=== PATIENT | female | born 1990 ===

== ENCOUNTER 2020-03-29 21:39 | Inpatient (IN) ==
[2020-03-29 23:00] LABS: ABS Basophils 0.1 10^3/ul (0-0.2); ABS Eosinophils 0.3 10^3/ul (0-0.6); ABS Lymphocytes 3.6 10^3/ul (1.0-4.8); ABS Monocytes 0.9 10^3/ul (0-0.8); ABS Neutrophils 7.1 10^3/ul (1.5-7.7); Eosinophil % 2.5 %; Hematocrit 34 % (35-47); Hemoglobin 11.1 g/dL (12.0-16.0); Lymphocyte % 29.9 %; Mean Corpuscular HGB Conc 33 g/dL (31-36); Mean Corpuscular Hemoglobin 25 pg (27-31); Mean Corpuscular Volume 77 fL (80-97); Mean Platelet Volume 7.6 fL (7.4-10.4); Platelet Count 360 10^3/uL (150-450); Red Cell Distribution Width 15 % (10-15); White Blood Count 11.9 10^3/uL (3.5-10.8)
[2020-03-29 23:22] LABS: Acetaminophen < 15 mcg/mL; Alcohol, S < 10 mg/dL (<10); Salicylate < 2.50 mg/dL (<30)
[2020-03-29 23:30] LABS: HCG Pregnancy < 0.60 mIU/mL
[2020-03-29 23:30] LABS: Urine Benzodiazepine Screen None Detected (None Detect); Urine Cannabinoids Screen None Detected (None Detect); Urine Opiates Screen None Detected (None Detect)
[2020-03-29 23:38] LABS: TSH Ultra Thyroid Stim Horm 2.58 mcIU/mL (0.34-5.60)
[2020-03-29 23:40] LABS: Free T4 0.78 ng/dL (0.61-1.12)
[2020-03-30] LABS: Anion Gap 10 mmol/L (2-11); CO2 Carbon Dioxide 23 mmol/L (22-32); Calcium 9.2 mg/dL (8.6-10.3); Chloride 107 mmol/L (101-111); Potassium 3.5 mmol/L (3.5-5.0); Sodium 140 mmol/L (135-145)
[2020-03-30 00:06] LABS: BUN/Creatinine Ratio 10.8 (8-20); Blood Urea Nitrogen 9 mg/dL (6-24); EGFR African American 97.7 (>60); EGFR Non-African American 80.7 (>60); Glucose 110 mg/dL (70-100)
[2020-03-30] MEDS ORDERED: Al Hydrox/Mg Hydrox/Simet LIQ 30 ML UDC PO PRN (11:23)
[2020-03-30] MEDS: Clotrimazole 1% CREAM 45 GM TOPICAL SCH ×3 (15:37→20:42)
[2020-03-30] MEDS: Venlafaxine XR 75 mg PO SCH (20:39)
[2020-03-30] MEDS: Calcium/Vitamin D TAB 250/125 TAB PO SCH (20:40)
[2020-03-30] MEDS: Mometasone/Formoter 100/5 MDI INH SCH (20:43)
[2020-03-30] MEDS: Chlorhexidine MOUTHWASH 0.12% 15 ML UDC SWISH SPIT SCH (20:43)
[2020-03-30] MEDS ORDERED: Fluticasone-Salmeterol 100-50 DISKUS INH SCH (21:00)
[2020-03-31] MEDS: Cholecalciferol (VIT D3) 1,000 unit TAB PO SCH (10:14)
[2020-03-31] MEDS: Calcium/Vitamin D TAB 250/125 TAB PO SCH ×2 (10:15→19:09)
[2020-03-31] MEDS: Vitamin THERAPEUTIC TAB PO SCH (10:16)
[2020-03-31] MEDS: Polyethylene Glycol 3350 17 GM PACKET PO SCH (10:17)
[2020-03-31] MEDS: Mometasone/Formoter 100/5 MDI INH SCH ×2 (10:17→19:07)
[2020-03-31] MEDS: Clotrimazole 1% CREAM 45 GM TOPICAL SCH ×2 (10:22→19:09)
[2020-03-31] MEDS: Chlorhexidine MOUTHWASH 0.12% 15 ML UDC SWISH SPIT SCH ×2 (10:23→19:09)
[2020-03-31] MEDS: Venlafaxine XR 75 mg PO SCH (19:12)
[2020-03-31 23:48] LABS: Urine Appearance Clear; Urine Bilirubin Negative (Negative); Urine Blood Negative (Negative); Urine Color Straw; Urine Glucose Negative (Negative); Urine Ketones Negative (Negative); Urine Nitrite Negative (Negative); Urine Protein Negative (Negative); Urine Specific Gravity 1.002 (1.010-1.030); Urine Urobilinogen Negative (Negative)
[2020-04-01] MEDS: Cholecalciferol (VIT D3) 1,000 unit TAB PO SCH (11:24)
[2020-04-01] MEDS: Calcium/Vitamin D TAB 250/125 TAB PO SCH ×2 (11:24→21:31)
[2020-04-01] MEDS: Vitamin THERAPEUTIC TAB PO SCH (11:24)
[2020-04-01] MEDS: Mometasone/Formoter 100/5 MDI INH SCH ×2 (11:25→21:35)
[2020-04-01] MEDS: Clotrimazole 1% CREAM 45 GM TOPICAL SCH ×2 (11:29→21:35)
[2020-04-01] MEDS: Polyethylene Glycol 3350 17 GM PACKET PO SCH (11:29)
[2020-04-01] MEDS: Chlorhexidine MOUTHWASH 0.12% 15 ML UDC SWISH SPIT SCH ×2 (11:30→21:35)
[2020-04-01 13:52] LABS: Chlamydia trachomatis NAA Negative (Negative); Neisseria gonorrhoeae (GC) NAA Negative (Negative)
[2020-04-01] MEDS: Venlafaxine XR 75 mg PO SCH (21:31)
[2020-04-02] MEDS: Cholecalciferol (VIT D3) 1,000 unit TAB PO SCH (09:16)
[2020-04-02] MEDS: Calcium/Vitamin D TAB 250/125 TAB PO SCH ×2 (09:17→21:11)
[2020-04-02] MEDS: Polyethylene Glycol 3350 17 GM PACKET PO SCH (09:18)
[2020-04-02] MEDS: Vitamin THERAPEUTIC TAB PO SCH (09:18)
[2020-04-02] MEDS: Mometasone/Formoter 100/5 MDI INH SCH ×2 (09:19→21:11)
[2020-04-02] MEDS: Chlorhexidine MOUTHWASH 0.12% 15 ML UDC SWISH SPIT SCH ×2 (09:20→21:11)
[2020-04-02] MEDS: Clotrimazole 1% CREAM 45 GM TOPICAL SCH ×2 (09:20→21:11)
[2020-04-02] MEDS: Venlafaxine XR 75 mg PO SCH (21:10)
[2020-04-03] MEDS: Calcium/Vitamin D TAB 250/125 TAB PO SCH ×2 (10:12→20:32)
[2020-04-03] MEDS: Cholecalciferol (VIT D3) 1,000 unit TAB PO SCH (10:12)
[2020-04-03] MEDS: Vitamin THERAPEUTIC TAB PO SCH (10:13)
[2020-04-03] MEDS: Chlorhexidine MOUTHWASH 0.12% 15 ML UDC SWISH SPIT SCH ×2 (10:14→20:35)
[2020-04-03] MEDS: Mometasone/Formoter 100/5 MDI INH SCH ×3 (10:14→20:34)
[2020-04-03] MEDS: Clotrimazole 1% CREAM 45 GM TOPICAL SCH ×2 (10:14→20:35)
[2020-04-03] MEDS: Polyethylene Glycol 3350 17 GM PACKET PO SCH (10:14)
[2020-04-03] MEDS: Venlafaxine XR 75 mg PO SCH (20:33)
[2020-04-04] MEDS: Cholecalciferol (VIT D3) 1,000 unit TAB PO SCH (10:15)
[2020-04-04] MEDS: Calcium/Vitamin D TAB 250/125 TAB PO SCH ×2 (10:16→21:39)
[2020-04-04] MEDS: Vitamin THERAPEUTIC TAB PO SCH (10:16)
[2020-04-04] MEDS: Mometasone/Formoter 100/5 MDI INH SCH ×2 (10:17→21:41)
[2020-04-04] MEDS: Polyethylene Glycol 3350 17 GM PACKET PO SCH (10:18)
[2020-04-04] MEDS: Chlorhexidine MOUTHWASH 0.12% 15 ML UDC SWISH SPIT SCH ×2 (10:18→21:41)
[2020-04-04] MEDS: Clotrimazole 1% CREAM 45 GM TOPICAL SCH ×2 (10:18→21:42)
[2020-04-04] MEDS: Venlafaxine XR 75 mg PO SCH (21:39)
[2020-04-05] MEDS: Mometasone/Formoter 100/5 MDI INH SCH ×2 (08:11→21:31)
[2020-04-05] MEDS: Chlorhexidine MOUTHWASH 0.12% 15 ML UDC SWISH SPIT SCH ×2 (08:11→21:31)
[2020-04-05] MEDS: Vitamin THERAPEUTIC TAB PO SCH (08:11)
[2020-04-05] MEDS: Cholecalciferol (VIT D3) 1,000 unit TAB PO SCH (08:12)
[2020-04-05] MEDS: Calcium/Vitamin D TAB 250/125 TAB PO SCH ×2 (08:12→21:27)
[2020-04-05] MEDS: Polyethylene Glycol 3350 17 GM PACKET PO SCH (08:13)
[2020-04-05] MEDS: Clotrimazole 1% CREAM 45 GM TOPICAL SCH ×2 (08:14→22:28)
[2020-04-05] MEDS ORDERED: Miconazole VAG.SUPP 100 MG VAGINAL SCH (21:00)
[2020-04-05] MEDS: Venlafaxine XR 75 mg PO SCH (21:29)
[2020-04-06 11:06] VITALS: BP 120/42
== END 2020-04-06 11:15 | disposition home or self-care (01) | DRG 885 ==
LOC: EDBD → ED 21:39 → BSU 03-30 07:54
PROVIDERS: ADMIT Psychiatry & Neurology Psychiatry; ATTEND Psychiatry & Neurology Psychiatry